=== PATIENT | male | born 1990 | race Caucasian/White ===

== ENCOUNTER 2018-01-29 09:49 | Emergency (ER) | payer OTHER, SELFPAY ==
--- NOTE | 2018-01-29 10:03 | DI.RAD.S_ITS ---
PROCEDURE: XR FINGER RT MIN 2V INDICATIONS: right index finger injury TECHNIQUE: AP hand, 2 views of the 2nd digit acquired. COMPARISON: None. FINDINGS: Bones: No fractures or dislocations. No suspicious bony lesions. Soft tissues: There is a soft tissue laceration along the volar aspect of the 2nd digit at the level of the distal aspect of the proximal phalanx. No radiopaque foreign bodies. No suspicious soft tissue calcifications. IMPRESSION: 1. Soft tissue laceration demonstrated without evidence of fracture or radiopaque foreign body. Dictated by: Levon Post M.D. on 01/29/2018 at 10:19 Approved by: Levon Post M.D. on 01/29/2018 at 10:21
[2018-01-29 10:22] VITALS: BP 119/86; PULSE 76; RESP 16; TEMP 36.9; O2SAT 100
[2018-01-29 11:33] VITALS: BP 108/72; PULSE 73; RESP 14; O2SAT 100
--- NOTE | 2018-01-29 11:53 | ED_ITS ---
HPI - Wound/Laceration General Chief Complaint: Wound/Laceration Stated Complaint: SLICED FINGER OPEN Time Seen by Provider: 01/29/18 10:03 Source: patient Mode of arrival: ambulatory Limitations: no limitations History of Present Illness HPI narrative: Patient is a he 27-year-old male who presents with the right index finger laceration. He was at work [employer] when he cut his right index finger with shrapnel. He was sent over from the walk-in clinic concern for tendon laceration he is unable to bend his PIP. Onset (ago): hour(s) Location: other (Right index finger) Place: work Related Data Home Medications Medication Instructions Recorded Confirmed No Known Home Medications 01/29/18 01/29/18 Allergies Allergy/AdvReac Type Severity Reaction Status Date / Time No Known Drug Allergies Allergy Unverified 01/29/18 09:01 Review of Systems Review of Systems GENERAL: Denies chills,fever HEENT: Denies throat pain RESPIRATORY: Denies dyspnea, cough, wheezing CARDIOVASCULAR: Denies chest pain, palpitations GASTROINTESTINAL: Denies nausea, vomiting MUSCULOSKELETAL: See HPI SKIN: All laceration, see HPI NEUROLOGIC: Denies weakness, dizziness, headache, numbness 8 point review of systems is negative except for those stated above and HPI PFSH Social History Smoking Status: Current every day smoker alcohol intake: former substance use type: does not use Exam Initial Vital Signs Initial Vital Signs: Vital Signs Temperature 98.4 F 01/29/18 10:22 Pulse Rate 76 01/29/18 10:22 Respiratory Rate 16 01/29/18 10:22 Blood Pressure 119/86 H 01/29/18 10:22 Pulse Oximetry 100 01/29/18 10:22 Const General: cooperative, healthy appearing and comfortable Chest Chest: normal inspection of the chest Resp Effort & Inspection: normal respiratory effort and able to speak in complete sentences Cardio Pulses: normal peripheral pulses GI Inspection: normal to inspection Skin Other: 2 cm laceration Hand L/R Front: 2 1. 2cm laceration- no tendon identified. Adipose tissue seen, no flashes seen Able to bend at D IP and MCP without any difficulty but really not able to bend or flex at the PIP. Neurovascularly intact Extrem Right upper extremity: hand Details: abnormal ROM of finger Details: pain with active ROM Location: of the 2nd digit, pain with passive ROM and unable to flex Location: of the 2nd digit (at PIP) Procedures Laceration Repair Laceration 1: Site: hand (index finger) Side (If applicable): right Description: linear Depth: simple, single layer Local Anesthetic: lidocaine 1% Amount of anesthesia used (mL): 5 Pre-repair: wound explored and irrigated extensively Skin layer closed with: nylon Size (cm): 4-0 Number of sutures: 3 Technique: simple, interrupted Course Orders Ordered: ED Orders 01/29/18 10:03 XR finger RT min 2V Stat Discontinued Medications Diphtheria/Tetanus/Acell Pertussis (Adacel) 0.5 ml IM .ONCE ONE Stop: 01/29/18 11:54 Last Admin: 01/29/18 12:01 Dose: 0.5 ml Consultations Consultation #1: Dr. Teran notified follow up in clinic Time: 11:54 Vital Signs - 8 hr 01/29/18 11:33 Pulse Rate 73 Respiratory Rate 14 Blood Pressure [Left Arm] 108/72 Pulse Oximetry 100 MDM - Wound/Laceration Imaging Data Right index finger x-ray: Radiologist's impression: PROCEDURE: XR FINGER RT MIN 2V INDICATIONS: right index finger injury TECHNIQUE: AP hand, 2 views of the 2nd digit acquired. COMPARISON: None. FINDINGS: Bones: No fractures or dislocations. No suspicious bony lesions. Soft tissues: There is a soft tissue laceration along the volar aspect of the 2nd digit at the level of the distal aspect of the proximal phalanx. No radiopaque foreign bodies. No suspicious soft tissue calcifications. IMPRESSION: 1. Soft tissue laceration demonstrated without evidence of fracture or radiopaque foreign body. Dictated by: Levon Post M.D. on 01/29/2018 at 10:19 Discharge Plan Departure Patient Disposition: Home, Self-Care Clinical Impression: Laceration of right index finger with tendon involvement Discharge Date/Time: 01/29/18 12:12 Interventions: ED Discharge Assessment Last Done: 01/29/18 12:12 Instructions: Tendon Repair, DI for Laceration Repair -- Complex Activity Restrictions/Additional Instructions: -call Orthopedics today, Dr. Teran recommended seeing her Sunday02/01/2018 at 9: 00 a.m. -keep wounds clean and dry, soap and water -limit use of right hand as tolerated -sutures should be removed is 5-7 days or by recommendation of Orthopedics as -signs of infection include redness, pus, swelling, increased pain, return to emergency department if these or any new or worsening symptoms should develop Prescriptions: No Action No Known Home Medications RF: 0 Referrals: Nicole Teran MD [Physician] - Stand Alone Forms: Work/School Restrictions
[2018-01-29] MEDS: TET,DIPH,PERTUSS(ACELL),VAC/PF 0.5 ML SYRINGE IM (12:01)
--- NOTE | 2018-01-29 12:10 | PC.NURSE ---
sutures x 3 placed by md, will follow up with ortho on sunday
== END 2018-01-29 12:12 | disposition home or self-care (01) ==
PROVIDERS: Emergency Provider Emergency Medicine
DX: S61.210A Laceration without foreign body of right index finger without damage to nail, initial encounter (principal); W26.9XXA Contact with unspecified sharp object(s), initial encounter
CPT/HCPCS: 12002; 73140; 90471; 99283; 90715